=== PATIENT | female | born 1995 | race American Indian/Alaskan Native ===

== ENCOUNTER 2017-08-02 00:22 | Emergency (ER) | payer SELFPAY ==
[2017-08-02 01:04] LABS: Basophils % (Auto) 0.1 % (0.0-1.8); Eosinophils % (Auto) 0.4 % (0.0-4.3); Hematocrit 36.1 % (30.3-42.9); Hemoglobin 12.1 gm/dl (10.1-14.3); Mean Corpuscular HGB Conc 34 % (30-34); Mean Corpuscular Hemoglobin 29 pg (28-32); Mean Corpuscular Volume 85 fl (79-97); Platelet Count 273 K/mm3 (140-440); Red Blood Count 4.24 M/mm3 (3.65-5.03); Red Cell Distribution Width 14.8 % (13.2-15.2); White Blood Count 10.2 K/mm3 (4.5-11.0)
[2017-08-02 01:27] LABS: Alanine Aminotransferase 12 units/L (7-56); Albumin 4.4 g/dL (3.9-5); Albumin/Globulin Ratio 1.5 %; Alkaline Phosphatase 98 units/L (35-129); Anion Gap 19 mmol/L; BUN/Creatinine Ratio 15; Blood Urea Nitrogen 9 mg/dL (7-17); Calcium 9.5 mg/dL (8.4-10.2); Carbon Dioxide 26 mmol/L (22-30); Chloride 103.2 mmol/L (98-107); Glucose 102 mg/dL (65-100); Lipase 26 units/L (13-60); Potassium 4.1 mmol/L (3.6-5.0); Sodium 144 mmol/L (137-145); Total Protein 7.4 g/dL (6.3-8.2)
[2017-08-02 01:35] LABS: Bilirubin,Urine NEG (Negative); Blood,Urine MOD (Negative); Ketones,Urine NEG (Negative); Leukocyte Esterase,Urine TR (Negative); Mucus,Urine 2+ /HPF; Nitrite,Urine NEG (Negative)
[2017-08-02] MEDS ORDERED: ZOFRAN IV ONE (03:59)
[2017-08-02] MEDS ORDERED: SUBLIMAZE IV ONE (03:59)
[2017-08-02] MEDS ORDERED: NACL 0.9% 1000 ML 1,000 ML IV ONE (03:59)
[2017-08-02 05:10] VITALS: BP 119/67
--- NOTE | 2017-08-02 05:42 | Emergency Department Report ---
HPI - General Chief Complaint: Abdominal Pain Time Seen by Provider: 08/02/17 03:59 - HPI HPI: The patient's 22-year-old female presents for evaluation of abdominal pain. The patient reports epigastric abdominal pain since 7 PM earlier tonight, constant for the past 8 hours, crampy in quality, 10/10 in severity, exacerbated with retching, and associated with loose watery stools and multiple episodes of nausea, and nonbilious, nonbloody emesis. The patient denies fever, chills, night sweats, blood in the stool, dark tarry stool, dysuria, hematuria, flank pain, genital discharge, inability to pass flatus. ED Past Medical Hx - Past Medical History Previous Medical History?: Yes Additional medical history: Anemia - Surgical History Past Surgical History?: Yes Additional Surgical History: C-Sec x 1 - Social History Smoking Status: Never Smoker Substance Use Type: None - Medications Home Medications: Home Medications Medication Instructions Recorded Confirmed Last Taken Type Acetaminophen/Codeine [Tylenol #3] 1 tab PO Q6H PRN #12 tab 08/02/17 Unknown Rx Ondansetron [Zofran TAB] 4 mg PO Q8HR PRN #15 tablet 08/02/17 Unknown Rx ED Review of Systems ROS: Stated complaint: ABD PAIN Other details as noted in HPI Constitutional: denies: fever ENT: denies: throat or neck pain Respiratory: denies: cough, shortness of breath Cardiovascular: denies: chest pain Endocrine: denies unexplained weight loss or gain Gastrointestinal: reports abdominal pain, nausea Genitourinary: denies: dysuria Musculoskeletal: denies: leg swelling Skin: denies: rash Neurological: denies: headache Hematological/Lymphatic: denies: easy bleeding or easy bruising Psych: denies sadness or hopelessness Physical Exam - Physical Exam Vital Signs: Vital Signs 08/02/17 08/02/17 08/02/17 00:23 00:53 01:00 Temperature 99.1 F 99.3 F Pulse Rate 96 H 96 H Respiratory 18 17 Rate Blood Pressure 122/62 Blood Pressure 128/68 126/72 [Right] O2 Sat by Pulse 96 100 100 Oximetry 08/02/17 08/02/17 08/02/17 02:00 03:00 04:00 Temperature Pulse Rate Respiratory Rate Blood Pressure 117/54 125/60 133/73 Blood Pressure [Right] O2 Sat by Pulse 100 99 100 Oximetry 08/02/17 05:00 Temperature Pulse Rate Respiratory Rate Blood Pressure 119/67 Blood Pressure [Right] O2 Sat by Pulse Oximetry Physical Exam: General: well-nourished, well-developed, no acute distress Head: Normocephalic, atraumatic Eyes: normal sclera ENT: Mucous membranes are pale and dry Neck: No neck stiffness, no cervical adenopathy Respiratory: Breath sounds equal bilaterally, no wheezing, rales, or rhonchi Cardio: S1 and S2 present, no murmurs, rubs, gallops, capillary refill is delayed Abdomen: Normoactive bowel sounds, soft abdomen, epigastric and left upper quadrant tenderness to palpation present, no rigidity, no guarding or rebound tenderness Chest WALL/Back: No tenderness to palpation of the chest wall, no CVA tenderness with percussion Musc: No pitting edema Skin: No rash Neuro: no facial drooping, normal speech Psych: Normal affect ED Course Vital Signs 08/02/17 08/02/17 08/02/17 00:23 00:53 01:00 Temperature 99.1 F 99.3 F Pulse Rate 96 H 96 H Respiratory 18 17 Rate Blood Pressure 122/62 Blood Pressure 128/68 126/72 [Right] O2 Sat by Pulse 96 100 100 Oximetry 08/02/17 08/02/17 08/02/17 02:00 03:00 04:00 Temperature Pulse Rate Respiratory Rate Blood Pressure 117/54 125/60 133/73 Blood Pressure [Right] O2 Sat by Pulse 100 99 100 Oximetry 08/02/17 05:00 Temperature Pulse Rate Respiratory Rate Blood Pressure 119/67 Blood Pressure [Right] O2 Sat by Pulse Oximetry ED Medical Decision Making - Lab Data Result diagrams: 08/02/17 00:51 08/02/17 00:51 - Medical Decision Making The patient was seen and examined by myself. The patient is placed on a quality assurance monitor body and continuous pulse ox. On initial evaluation, the patient was found to be in no distress. Evaluation orders are placed. IV access is established and the patient is given 1 L normal saline fluid bolus and Zofran for nausea, and IV analgesic for pain. Lab results were non-concerning including WBC, hemoglobin, hematocrit, electrolytes, renal function, LFTs, lipase, and urinalysis. The patient was reevaluated and reported that their symptoms were markedly improved. The patient is stable for discharge with outpatient follow-up. The patient is given follow-up and return instructions. The patient expressed understanding and agreed with the plan. The patient is discharged in stable condition. Critical care attestation.: If time is entered above; I have spent that time in minutes in the direct care of this critically ill patient, excluding procedure time. ED Disposition Clinical Impression: Acute epigastric pain, Acute LUQ pain, Dehydration, mild, Nausea and vomiting in adult Disposition: DC-01 TO HOME OR SELFCARE Is pt being admited?: No Does the pt Need Aspirin: No Condition: Stable Instructions: Abdominal Pain (ED), Gastroenteritis (ED), Acute Nausea and Vomiting (ED), Food Poisoning (ED) Referrals: PRIMARY CARE, [Primary Care Provider] - 3-5 Days Time of Disposition: 05:35
== END 2017-08-02 06:03 | disposition home or self-care (01) ==
LOC: ED 00:22
DX: E86.0 Dehydration (principal); R10.13 Epigastric pain; R10.12 Left upper quadrant pain; R11.2 Nausea with vomiting, unspecified
CPT/HCPCS: 36415; 80053; 81001; 83690; 84703; 85025; 96361; 96374; 96375; 99284; J2405; J3010; J7030